=== PATIENT | male | born 1945 | race Caucasian/White ===

== ENCOUNTER 2021-09-13 10:44 | Inpatient (IN) | payer MEDICARE, OTHER ==
[2021-09-11 13:24] LABS: BASOPHILS # (AUTO) 0.1 (0.0-0.1); BASOPHILS % 0.9 % (0.0-1.0); EOSINOPHILS # (AUTO) 0.2 (0.0-0.4); EOSINOPHILS % 3.4 % (0.0-6.0); HEMATOCRIT 32.9 % (38.2-49.6); HEMOGLOBIN 10.3 g/dL (14.0-18.0); LYMPHOCYTES # (AUTO) 1.1 (1.0-3.2); LYMPHOCYTES % 17.3 % (18.0-39.1); MEAN CORPUSCULAR HEMOGLOBIN 31.5 pg (28-32); MEAN CORPUSCULAR HGB CONC 31.3 g/dL (31-35); MEAN CORPUSCULAR VOLUME 100.6 fL (81-99); MONOCYTES # (AUTO) 0.5 (0.2-0.8); MONOCYTES % 7.2 % (4.4-11.3); NEUTROPHILS # (AUTO) 4.6 (2.1-6.9); NEUTROPHILS % 70.7 % (38.7-80.0); PLATELET COUNT 186 x10e3/uL (140-360); RED BLOOD COUNT 3.27 x10e6/uL (4.3-5.7)
[2021-09-11 13:38] LABS: INR 1.09; PROTHROMBIN TIME 15.1 seconds (11.9-14.5)
[2021-09-11 13:39] LABS: PARTIAL THROMBOPLASTIN TIME 28.1 seconds (23.8-35.5)
[2021-09-11 13:43] LABS: ANION GAP 10.3 mmol/L (8-16); CALCIUM 8.6 mg/dL (8.4-10.2); CREATININE, SERUM 0.87 mg/dL (0.72-1.25); POTASSIUM 4.3 mmol/L (3.5-5.1)
[~2021-09-13] VITALS: Ht 162.6 cm; Wt 93.4 kg
[~2021-09-13 10:44] MED LIST: ALLOPURINOL300 MG PO; CARVEDILOL12.5 MG PO; CLOPIDOGREL75 MG PO; DIGOXIN125 MCG PO; ELIQUIS5 MG PO; FINASTERIDE5 MG PO; FLOMAX0.4 MG PO; METFORMIN HCL500 MG PO; NEURONTIN300 MG PO; OMEPRAZOLE40 MG PO; PIOGLITAZONE HC45 MG PO; POTASSIUM CHLO20 ME1 PO; PRAVASTATIN SOD80 MG PO; TORSEMIDE20 MG PO
[2021-09-13] MEDS ORDERED: GENTAMICIN 80MG/NS 100 ML 200 ML IV ONE (11:13)
[2021-09-13] MEDS ORDERED: CEFTRIAXONE 1 GM VIAL ONE (11:13)
[2021-09-13] MEDS ORDERED: SODIUM CHLORIDE 0.9% 1000ML 1,000 ML ONE (11:22)
[2021-09-13] MEDS ORDERED: MIDAZOLAM HCL 2 MG/2 ML VIAL ONE (12:50)
[2021-09-13] MEDS ORDERED: FENTANYL CITRATE/PF 100MCG/2 ML INJ ONE (12:50)
[2021-09-13] MEDS ORDERED: NEOMYCIN/POLYMYX/BACITR OINT 0.9 GM PKT ONE (13:41)
[2021-09-13] MEDS ORDERED: IOPAMIDOL 300MG/ML 50ML INFUS..BTL IV ONE ×2 (13:42→15:03)
[2021-09-13] MEDS ORDERED: BUPIVACAINE HCL 0.25% 10ML MPF VIAL INJ ONE (13:42)
[2021-09-13] MEDS ORDERED: B&O 60MG R/S 60 MG SUPP PR ONE (13:42)
[2021-09-13] MEDS: FENTANYL CITRATE/PF 100MCG/2 ML INJ ONE ×2 (16:50→17:19)
[2021-09-13] MEDS ORDERED: DIPHENHYDRAMINE HCL 25 MG CAP PO PRN (17:00)
[2021-09-13] MEDS ORDERED: ONDANSETRON HCL INJ 2MG/ML 2ML 2 MG/ML VIAL IV PRN (17:00)
[2021-09-13] MEDS ORDERED: B&O 60MG R/S 60 MG SUPP PR PRN (17:00)
[2021-09-13 17:03] LABS: BASOPHILS # (AUTO) 0.1 (0.0-0.1); BASOPHILS % 0.9 % (0.0-1.0); EOSINOPHILS # (AUTO) 0.1 (0.0-0.4); EOSINOPHILS % 1.7 % (0.0-6.0); HEMATOCRIT 33.6 % (38.2-49.6); HEMOGLOBIN 10.4 g/dL (14.0-18.0); LYMPHOCYTES # (AUTO) 0.9 (1.0-3.2); LYMPHOCYTES % 13.5 % (18.0-39.1); MEAN CORPUSCULAR HEMOGLOBIN 31.7 pg (28-32); MEAN CORPUSCULAR VOLUME 102.4 fL (81-99); MONOCYTES # (AUTO) 0.2 (0.2-0.8); MONOCYTES % 2.7 % (4.4-11.3); NEUTROPHILS # (AUTO) 5.4 (2.1-6.9); NEUTROPHILS % 80.6 % (38.7-80.0); PLATELET COUNT 180 x10e3/uL (140-360); RED BLOOD COUNT 3.28 x10e6/uL (4.3-5.7); RED CELL DISTRIBUTION WIDTH 14.8 % (11.7-14.4)
[2021-09-13 17:24] LABS: ANION GAP 12.4 mmol/L (8-16); CALCIUM 8.2 mg/dL (8.4-10.2); CREATININE, SERUM 0.83 mg/dL (0.72-1.25); POTASSIUM 4.4 mmol/L (3.5-5.1)
[2021-09-13] MEDS: DOCUSATE SODIUM 100 MG CAP PO SCH (17:30)
[2021-09-13] MEDS: SOD CHL 0.45%/POT CHL 20MEQ 1,000 ML IV SCH (17:30)
[2021-09-13] MEDS: PHENAZOPYRIDINE HCL 100 MG TAB PO PRN (18:11)
[2021-09-13 18:17] VITALS: BP 166/88
[2021-09-13 18:28] VITALS: BP 166/88
[2021-09-13] MEDS: ACETAMINOPHEN/CODEINE 300MG - 30MG TAB PO PRN ×2 (18:33→22:26)
[2021-09-13 20:00] VITALS: BP 159/85
[2021-09-14] VITALS (8 sets, daily range): BP systolic 126–163; BP diastolic 62–90
[2021-09-14 05:33] LABS: BASOPHILS % 0.2 % (0.0-1.0); HEMATOCRIT 35.8 % (38.2-49.6); HEMOGLOBIN 11.3 g/dL (14.0-18.0); LYMPHOCYTES % 10.4 % (18.0-39.1); MEAN CORPUSCULAR HEMOGLOBIN 31.1 pg (28-32); MEAN CORPUSCULAR HGB CONC 31.6 g/dL (31-35); MEAN CORPUSCULAR VOLUME 98.6 fL (81-99); MONOCYTES # (AUTO) 0.3 (0.2-0.8); MONOCYTES % 3.2 % (4.4-11.3); NEUTROPHILS % 85.6 % (38.7-80.0); PLATELET COUNT 227 x10e3/uL (140-360); RED BLOOD COUNT 3.63 x10e6/uL (4.3-5.7); RED CELL DISTRIBUTION WIDTH 14.6 % (11.7-14.4)
[2021-09-14 05:50] LABS: ANION GAP 12.6 mmol/L (8-16); CREATININE, SERUM 0.84 mg/dL (0.72-1.25); POTASSIUM 4.6 mmol/L (3.5-5.1)
[2021-09-14] MEDS: SOD CHL 0.45%/POT CHL 20MEQ 1,000 ML IV SCH (06:39)
[2021-09-14] MEDS: FINASTERIDE 5 MG TAB PO SCH (08:33)
[2021-09-14] MEDS: CARVEDILOL 12.5 MG TAB PO SCH ×2 (08:33→16:56)
[2021-09-14] MEDS: TAMSULOSIN HCL 0.4 MG CAP PO SCH ×2 (08:33→16:56)
[2021-09-14] MEDS: PANTOPRAZOLE SOD 40 MG TABEC PO SCH (08:33)
[2021-09-14] MEDS: ALLOPURINOL 300 MG TAB PO SCH (08:33)
[2021-09-14] MEDS: ACETAMINOPHEN/CODEINE 300MG - 30MG TAB PO PRN (08:33)
[2021-09-14] MEDS: METFORMIN HCL 500 MG TAB PO SCH (08:33)
[2021-09-14] MEDS: DIGOXIN 0.125 MG TAB PO SCH (08:33)
[2021-09-14] MEDS: DOCUSATE SODIUM 100 MG CAP PO SCH ×2 (08:33→16:56)
[2021-09-14] MEDS: PIOGLITAZONE HCL 15 MG TAB PO SCH (08:33)
[2021-09-14] MEDS: GABAPENTIN 300 MG CAP PO SCH (08:33)
[2021-09-14] MEDS ORDERED: POTASSIUM CHLORIDE 20 MEQ TAB CR PO SCH (09:00)
[2021-09-14] MEDS ORDERED: TORSEMIDE 10 MG TAB PO SCH (09:00)
[2021-09-14] MEDS ORDERED: ONDANSETRON HCL INJ 2MG/ML 2ML 2 MG/ML VIAL IV PRN (10:15)
[2021-09-14] MEDS ORDERED: DEXTROSE 50% SYRINGE 50 ML IV PRN (10:15)
[2021-09-14] MEDS ORDERED: SODIUM CHLORIDE 0.45% 1,000 ML IV SCH (10:15)
[2021-09-14] MEDS ORDERED: MAGNESIUM SULFATE 2GM/50ML IV NR (10:30)
[2021-09-14] MEDS: INSULIN LISPRO 100 UNIT/1 ML 3ML VIAL SQ SCH ×3 (11:30→21:00)
[2021-09-14] MEDS ORDERED: SODIUM BICARBONATE 8.4% 50 ML in SODIUM CHLORIDE 0.45% 1,000 ML IV SCH (13:00)
[2021-09-14] MEDS: SODIUM BICARBONATE 8.4% 50 ML in SODIUM CHLORIDE 0.45% 1,000 ML IV SCH (13:53)
[2021-09-14] MEDS ORDERED: SIMVASTATIN 40 MG TAB PO SCH (21:00)
[2021-09-15] VITALS: BP 148/58
[2021-09-15] MEDS: SODIUM BICARBONATE 8.4% 50 ML in SODIUM CHLORIDE 0.45% 1,000 ML IV SCH ×2 (00:30→11:14)
[2021-09-15 04:00] VITALS: BP 165/97
[2021-09-15] MEDS: PHENAZOPYRIDINE HCL 100 MG TAB PO PRN ×2 (04:59→15:15)
[2021-09-15 05:28] LABS: BASOPHILS # (AUTO) 0.1 (0.0-0.1); BASOPHILS % 0.6 % (0.0-1.0); EOSINOPHILS # (AUTO) 0.1 (0.0-0.4); EOSINOPHILS % 1.1 % (0.0-6.0); HEMATOCRIT 34.5 % (38.2-49.6); HEMOGLOBIN 10.9 g/dL (14.0-18.0); LYMPHOCYTES # (AUTO) 1.9 (1.0-3.2); LYMPHOCYTES % 18.2 % (18.0-39.1); MEAN CORPUSCULAR HEMOGLOBIN 31.6 pg (28-32); MEAN CORPUSCULAR HGB CONC 31.6 g/dL (31-35); MONOCYTES # (AUTO) 0.6 (0.2-0.8); MONOCYTES % 5.6 % (4.4-11.3); NEUTROPHILS # (AUTO) 7.7 (2.1-6.9); NEUTROPHILS % 74.1 % (38.7-80.0); PLATELET COUNT 229 x10e3/uL (140-360); RED BLOOD COUNT 3.45 x10e6/uL (4.3-5.7); RED CELL DISTRIBUTION WIDTH 14.6 % (11.7-14.4)
[2021-09-15 05:52] LABS: ANION GAP 12.9 mmol/L (8-16); CALCIUM 8.1 mg/dL (8.4-10.2); CREATININE, SERUM 1.04 mg/dL (0.72-1.25); POTASSIUM 3.9 mmol/L (3.5-5.1)
[2021-09-15] MEDS: INSULIN LISPRO 100 UNIT/1 ML 3ML VIAL SQ SCH ×3 (07:30→16:30)
[2021-09-15 08:09] VITALS: BP 148/79
[2021-09-15 08:10] VITALS: BP 148/79
[2021-09-15] MEDS: METFORMIN HCL 500 MG TAB PO SCH (08:38)
[2021-09-15] MEDS: PANTOPRAZOLE SOD 40 MG TABEC PO SCH (08:39)
[2021-09-15] MEDS: PIOGLITAZONE HCL 15 MG TAB PO SCH (08:39)
[2021-09-15] MEDS: GABAPENTIN 300 MG CAP PO SCH (08:39)
[2021-09-15] MEDS: DOCUSATE SODIUM 100 MG CAP PO SCH ×2 (08:39→16:58)
[2021-09-15] MEDS: DIGOXIN 0.125 MG TAB PO SCH (08:39)
[2021-09-15] MEDS: FINASTERIDE 5 MG TAB PO SCH (08:39)
[2021-09-15] MEDS: CARVEDILOL 12.5 MG TAB PO SCH ×2 (08:39→16:58)
[2021-09-15] MEDS: ALLOPURINOL 300 MG TAB PO SCH (08:39)
[2021-09-15] MEDS: TAMSULOSIN HCL 0.4 MG CAP PO SCH ×2 (08:39→16:58)
[2021-09-15 13:32] VITALS: BP 139/65
[2021-09-15] MEDS: ACETAMINOPHEN/CODEINE 300MG - 30MG TAB PO PRN (13:45)
[2021-09-15 16:00] VITALS: BP 156/89
[2021-09-15] MEDS ORDERED: CIPRO250 MG PO (18:12)
== END 2021-09-15 19:44 | disposition home or self-care (01) | DRG 713 ==
LOC: OR 10:44 → MED/SURG 16:52
PROVIDERS: ADMIT Internal Medicine; ATTEND Internal Medicine
PROC: 0V508ZZ Destruction of Prostate, Via Natural or Artificial Opening Endoscopic (ICD-10-PCS; principal; 2021-09-15)
PROC: 0VTTXZZ Resection of Prepuce, External Approach (ICD-10-PCS; 2021-09-15)
PROC: 0T788ZZ Dilation of Bilateral Ureters, Via Natural or Artificial Opening Endoscopic (ICD-10-PCS; 2021-09-15)
PROC: BT141ZZ Fluoroscopy of Kidneys, Ureters and Bladder using Low Osmolar Contrast (ICD-10-PCS; 2021-09-15)
PROC: 3E0T3BZ Introduction of Anesthetic Agent into Peripheral Nerves and Plexi, Percutaneous Approach (ICD-10-PCS; 2021-09-15)
DX: N40.1 Benign prostatic hyperplasia with lower urinary tract symptoms (principal); D62 Acute posthemorrhagic anemia; N39.0 Urinary tract infection, site not specified; N13.8 Other obstructive and reflux uropathy; R33.8 Other retention of urine; R31.0 Gross hematuria; I25.10 Atherosclerotic heart disease of native coronary artery without angina pectoris; N47.1 Phimosis; E78.00 Pure hypercholesterolemia, unspecified; E78.5 Hyperlipidemia, unspecified; M10.9 Gout, unspecified; K29.70 Gastritis, unspecified, without bleeding; I48.91 Unspecified atrial fibrillation; Z79.01 Long term (current) use of anticoagulants; N31.9 Neuromuscular dysfunction of bladder, unspecified; N31.2 Flaccid neuropathic bladder, not elsewhere classified; Z80.42 Family history of malignant neoplasm of prostate; Z68.35 Body mass index [BMI] 35.0-35.9, adult; R36.1 Hematospermia; I12.9 Hypertensive chronic kidney disease with stage 1 through stage 4 chronic kidney disease, or unspecified chronic kidney disease; N18.9 Chronic kidney disease, unspecified; Z20.822 Contact with and (suspected) exposure to COVID-19
CPT/HCPCS: 36415; 71046; 74420; 80048; 82948; 83735; 85025; 85610; 85730; 88304; 94799; C1758; J0696; J1580; J2250; J3010; J3475; J7030; U0002